=== PATIENT | male | born 1945 | race Caucasian/White ===

== ENCOUNTER 2018-05-30 14:20 | Emergency (ER) | payer MEDICARE, BC ==
--- NOTE | 2018-05-30 15:10 | UC ---
Bite Injury/Animal HPI - HPI Summary HPI Summary: Patient is year old , who present today to the urgent care for no bite. It 's his own dog. He bit in both his arms , initially 2 days ago on the left wrist and hand, and yesterday on the right distal forearm. He reports that the dog has been seen at [facility] and dealing with anxiety issues and is on antianxiety meds. They have a follow-up appointment at [facility] with behavioral doctor, Dr. Joshi. Denies any fever, chills, cough chest pain or shortness of breath . No diaphoresis. Denies any abdominal pain , nausea or vomiting , diarrhea or constipation. He is does not remember his last tetanus shot but it was more than 5 years ago - History of Current Complaint Stated Complaint: DOG BITE Time Seen by Provider: 05/30/18 15:05 Hx Obtained From: Patient - Allergies/Home Medications Allergies/Adverse Reactions: Allergies Allergy/AdvReac Type Severity Reaction Status Date / Time aspirin Allergy Unknown Rash Verified 05/30/18 15:08 Home Medications: Home Medications Furosemide TAB* [Lasix TAB*] 20 mg PO DAILY 05/30/18 [History Confirmed 05/30/18 ] Naproxen [Naprosyn 500 mg tab] 500 mg PO DAILY 05/30/18 [History Confirmed 05/30] Zolpidem TAB* [Ambien TAB*] 5 mg PO BEDTIME PRN 05/30/18 [History Confirmed 08/16] PMH/Surg Hx/FS Hx/Imm Hx Previously Healthy: Yes Endocrine History: Dyslipidemia Other Endocrine History: negative Cardiovascular History: Hypertension Other Cardiovascular History: negative Respiratory History: COPD Other Respiratory History: negative Other GI/ History: negative Other Neurological History: negative Other Psychological History: negative Other Cancer History: negative - Surgical History Surgical History: Yes Surgery Procedure, Year, and Place: SINUS SURGERY, RT SHOULDER SURGERY - Social History Alcohol Use: None Substance Use Type: None Smoking Status (MU): Former Smoker Type: Smokeless Tobacco Review of Systems All Other Systems Reviewed And Are Negative: Yes Constitutional: Positive: Negative Skin: Positive: Rash, Other - Dogbite on both upper extremity Eyes: Positive: Negative ENT: Positive: Negative Respiratory: Positive: Negative Cardiovascular: Positive: Negative Gastrointestinal: Positive: Negative Genitourinary: Positive: Negative Motor: Positive: Negative Neurovascular: Positive: Negative Musculoskeletal: Positive: Negative Neurological: Positive: Negative Psychological: Positive: Negative Is Patient Immunocompromised?: No Physical Exam - Summary Physical Exam Summary: Physical Exam: Const: Appears well. No signs of apparent distress present. Alert and oriented x 3. Musculo: Walks with a normal gait. Head/Face: Atraumatic, normocephalic on inspection. Eyes: EOMI and PERRLA in both eyes. Conjunctivae clear. No discharge noted ENT: Hearing normal, TM normal appearing bilaterally . Respiratory: Respirations are unlabored. Lungs clear to auscultation bilaterally, no wheezing , rhonchi or rales noted . CVS: Regular rate and Rhythm, S1S2 normal , no murmurs identified. Extremities: Peripheral circulation is grossly normal. Pulses 2+ Abdomen : Soft non tender , nondistended , Bowel sounds present . No guarding , rebound tenderness or rigidity noted. Skin: Left upper extremity: Scratch haider noted on the left fifth finger and hand on the dorsal aspect, there is associated redness and swelling in that area and the left wrist and left hand dorsally Right upper extremity: on the distal forearm on the ulnar aspect there is a bite calixto with redness. There is no drainage noted from any lesion Neuro: Cranial nerves II to XII intact, motor and sensory intact. DTR Intact bilaterally. Mood is normal. Affect is normal. Triage Information Reviewed: Yes Vital Signs Reviewed: Yes Images Hands: 1 - Scratch haider 2 - Redness 3 - Bite calixto Bite Injury Course/Dx - Course Course Of Treatment: During the visit today, he was given a tetanus booster shot. We discussed the findings and further plan. He will keep an eye on the dog for next 10 days to see if there is any change in behavior though he is up- to-date with his immunization.I will prescribe the medication to the pharmacy . Patient expressed understanding . - Differential Dx/Diagnosis Provider Diagnosis: Dog bite, Cellulitis Discharge - Sign-Out/Discharge Documenting (check all that apply): Patient Departure All imaging exams completed and their final reports reviewed: No Studies - Discharge Plan Condition: Stable Disposition: HOME Prescriptions: Amoxicillin/Clavulanate TAB* [Augmentin TAB 875*] 875 mg PO BID 10 Days #20 tab Patient Education Materials: Animal Bite (ED) Referrals: Jonah Cardenas MD [Primary Care Provider] - 1 Week Additional Instructions: Please start taking the medication as prescribed to the pharmacy . Follow up with your primary care doctor in 1 week Patients blood pressure slightly high in Urgent care today , plan follow up with PCP for better control Return to Urgent care / ER if symptoms get worse. - Billing Disposition and Condition Condition: STABLE Disposition: Home
[2018-05-30 15:23] VITALS: BP 154/67
[2018-05-30] MEDS ORDERED: Tetan/Diph/Pertus SYR(Tdap)* 0.5 ML SYR(BOOSTRIX) use SYR IM ONE (15:34)
== END 2018-05-30 15:44 | disposition home or self-care (01) ==
LOC: UCCORT 14:20
DX: S61.552A Open bite of left wrist, initial encounter (principal); Z87.891 Personal history of nicotine dependence; S61.452A Open bite of left hand, initial encounter; S51.851A Open bite of right forearm, initial encounter; W54.0XXA Bitten by dog, initial encounter; Y92.9 Unspecified place or not applicable; I10 Essential (primary) hypertension; Z88.6 Allergy status to analgesic agent
CPT/HCPCS: 90471; 90715; 99202; G0463

== ENCOUNTER 2024-07-12 11:42 | Observation (INO) ==
[~2024-07-12 11:42] MED LIST: NS 0.45% 1000 ml BAG 1,000 ML IV SCH; Naloxone 0.4 mg VIAL 0.4 mg/ml 1 ml VIAL IV PRN; Ondansetron 4 mg VIAL 2 MG/ML 2 ml VIAL IV PRN; ROPIVACAINE 5 MG/ML 30 ML BTL (0.5%) ONE
[2024-07-12] MEDS ORDERED: ceFAZolin 2 GM PREMIX 2 GM/50 ML BAG ONE (12:10)
[2024-07-12] MEDS ORDERED: Tranexamic Acid 1 GM/100ML BAG 2,000 MG/200 ML BAG IV ONE (12:11)
[2024-07-12 12:24] LABS: Rapid COVID-19 Molecular Undetected (Undetected)
[2024-07-12] MEDS ORDERED: Rocuronium 50 mg VIAL 10 mg/ml 5 ml VIAL (50 mg) ONE (12:57)
[2024-07-12] MEDS ORDERED: Lidocaine 2% PF 5 ML VIAL ONE (13:05)
[2024-07-12] MEDS ORDERED: Propofol 10 MG/ML 20 ML BTL ONE ×3 (13:06→16:06)
[2024-07-12] MEDS ORDERED: Calcium Carb (TUMS) 500 mg CHEW TAB PO PRN (14:12)
[2024-07-12] MEDS ORDERED: Magnesium Hydroxide LIQ 30 ML UDC PO PRN (14:12)
[2024-07-12] MEDS ORDERED: Ondansetron ODT 4 mg TAB 4 MG TAB PO PRN (14:12)
[2024-07-12] MEDS ORDERED: Ondansetron 4 mg VIAL 2 MG/ML 2 ml VIAL IV PRN (14:12)
[2024-07-12] MEDS ORDERED: Morphine 2 MG/ML SYRINGE IV PRN (14:12)
[2024-07-12] MEDS ORDERED: Lactulose 30 ml UDC PO PRN (14:12)
[2024-07-12] MEDS ORDERED: Glycopyrrolate IV 0.2 MG/ML 1 ML VIAL ONE (14:50)
[2024-07-12] MEDS ORDERED: Dexamethasone IV 4 MG/ML VIAL 1 ml VIAL ONE (15:02)
[2024-07-12] MEDS ORDERED: Ondansetron 4 mg VIAL 2 MG/ML 2 ml VIAL ONE (15:02)
[2024-07-12] MEDS ORDERED: Midazolam 2 mg/2 ml VIAL 1 mg/ml 2 ml VIAL (2 mg) ONE (16:07)
[2024-07-12] MEDS ORDERED: fentaNYL 100 mcg/2 ml 50 MCG/ML VIAL ONE ×2 (16:55→17:45)
[2024-07-12] MEDS: fentaNYL 100 mcg/2 ml 50 MCG/ML VIAL IV PRN (16:59)
[2024-07-12] MEDS ORDERED: Albuterol HFA INHALER 8 gm MDI INH PRN (17:28)
[2024-07-12] MEDS: Acetaminophen IV 1 GM/100ML 1,000 MG/100 ML BAG IV ONE (17:29)
[2024-07-12] MEDS: Lactated Ringers 1000 ml BAG 1,000 ML IV SCH ×2 (17:29→18:31)
[2024-07-12] MEDS: Buffered Lidocaine 1% SYRIN 1 ml INTRADERM ONE (17:29)
[2024-07-12] MEDS: Mometasone/Formoter 100/5 MDI INH SCH (20:03)
[2024-07-12] MEDS: Magnesium Hydroxide LIQ 30 ML UDC PO SCH (21:23)
[2024-07-12] MEDS: ceFAZolin 2 GM PREMIX 2 GM/50 ML BAG IV SCH (21:23)
[2024-07-13 06:08] LABS: Hematocrit 39.1 % (38-53); Hemoglobin 13.1 g/dL (13.2-16.3); Mean Platelet Volume 6.9 fL (7.5-11.2); Platelet Count 313 10^3/uL (150-450)
[2024-07-13 06:57] LABS: Calcium 8.8 mg/dL (8.6-10.3); Creatinine, Serum 1.07 mg/dL (0.67-1.17); Potassium 4.5 mmol/L (3.5-5.0); eGFR CKD-EPI 71.5 (>60)
[2024-07-13] MEDS ORDERED: LOVASTATIN 20 MG PO SCH (09:00)
[2024-07-13] MEDS: Vitamin THERAPEUTIC TAB PO SCH (11:55)
[2024-07-13 13:55] VITALS: BP 127/58
== END 2024-07-13 16:50 | disposition home or self-care (01) ==
LOC: SSU 11:42 → OR 11:42
PROVIDERS: ADMIT Orthopaedic Surgery Adult Reconstructive Orthopaedic Surgery; ATTEND Orthopaedic Surgery Adult Reconstructive Orthopaedic Surgery